=== PATIENT | female | born 1950 | race Caucasian/White ===

== ENCOUNTER → 2018-07-23 | Outpatient (CLI) | payer MEDICARE, BC ==
[~2018-07-23] MED LIST: CLIMARA1 EACH; DIPATR PO; Hydrocodone-Ap1 EA23; PROG100; PROM25 PO; Phenergan25 MG PR; SULI150; Sulindac200 MG PO
[2018-07-24 15:07] LABS: HPV 16 Negative (Negative); HPV 18 Negative (Negative); HPV OTHER HR TYPES Negative (Negative)
== END | disposition home or self-care (01) ==
LOC: LAB SHORT 13:59 → LAB 13:59
PROVIDERS: Nurse Practitioner Women's Health
DX: Z12.4 Encounter for screening for malignant neoplasm of cervix (principal)
CPT/HCPCS: 87624; G0123

== ENCOUNTER → 2022-08-18 | Outpatient (CLI) | payer MEDICARE, BC ==
[~2022-08-18] MED LIST changes: +CONEST1.25 PO; +PROG100 PO
[2022-08-18 19:00] LABS: Adenovirus F 40/41 Not Detected (NOT DETECT); Astrovirus Detected (NOT DETECT); Campylobacter Sp Not Detected (NOT DETECT); Cryptosporidium Not Detected (NOT DETECT); Cyclospora Cayetanensis Not Detected (NOT DETECT); E. Coli O157 Not Detected (NOT DETECT); Entamoeba Histolytica Not Detected (NOT DETECT); Enteroaggregative E. coli-EAEC Not Detected (NOT DETECT); Enteropathogenic E. coli-EPEC Not Detected (NOT DETECT); Enterotoxigenic E. coli-ETEC Not Detected (NOT DETECT); Giardia Lamblia Not Detected (NOT DETECT); Norovirus GI/GII Not Detected (NOT DETECT); Plesiomonas Shigelloides Not Detected (NOT DETECT); Rotavirus A Not Detected (NOT DETECT); Salmonella Sp Not Detected (NOT DETECT); Sapovirus Not Detected (NOT DETECT); Shiga Toxin-prod E. coli-STEC Not Detected (NOT DETECT); Shigella/Enteroin E. coli-EIEC Not Detected (NOT DETECT); Vibrio Cholerae Not Detected (NOT DETECT); Vibrio Sp Not Detected (NOT DETECT); Yersinia Enterocolitica Not Detected (NOT DETECT)
== END | disposition home or self-care (01) ==
LOC: LAB SHORT 15:44 → LAB 15:44
PROVIDERS: Internal Medicine
DX: R19.7 Diarrhea, unspecified (principal)
CPT/HCPCS: 87507

== ENCOUNTER 2023-07-10 09:35 | Day surgery (SDC) | payer MEDICARE, BC ==
[~2023-07-10] VITALS: Ht 172.7 cm; Wt 70.5 kg
[~2023-07-10 09:35] MED LIST changes: +Ciprofloxacin 0.3% Opth Soln 2.5 ML BTL ONE; +Lactated Ringer's 1,000 ML IV ONE
[2023-07-10] MEDS ORDERED: Lactated Ringer's 1,000 ML IV ONE (10:03)
[2023-07-10] MEDS ORDERED: FentaNYL Citrate 50 MCG/ML 2 ML Injection ONE ×2 (10:30→12:41)
[2023-07-10] MEDS ORDERED: propofoL 40 ML IV ONE (10:30)
[2023-07-10] MEDS ORDERED: Lidocaine HCl 4% 5 ML SDA ONE (11:38)
--- NOTE | 2023-07-10 11:57 | NUR ---
07/10/23 1157 Rasheed Torres LIDOCAINE 4% 10 ML MIXED WITH EPI 1:1000 10ML. USED TO SOAK PLEDGETS FOR PACKING ONLY.
[2023-07-10] MEDS ORDERED: propofoL 20 ML IV ONE ×2 (12:02→12:16)
[2023-07-10] MEDS ORDERED: EPINEPhrine HCl 1 MG/ML 1ML Amp XX ONE (12:02)
[2023-07-10] MEDS ORDERED: Dexamethasone Sod Phos 10 MG/ML 1ML VIAL ONE (12:05)
[2023-07-10] MEDS ORDERED: Ondansetron HCl 2 MG / ML 2ML Vial ONE (12:05)
[2023-07-10 13:03] VITALS: BP 123/82
[2023-07-10] MEDS ORDERED: OxyCODONE HCL 5 MG TAB ONE (13:22)
== END 2023-07-10 13:57 | disposition home or self-care (01) ==
LOC: ORSCSDS 09:35
PROVIDERS: Otolaryngology
PROC: 097F8ZZ Dilation of Right Eustachian Tube, Via Natural or Artificial Opening Endoscopic (ICD-10-PCS; principal; 2023-07-10 11:00)
PROC: 097G8ZZ Dilation of Left Eustachian Tube, Via Natural or Artificial Opening Endoscopic (ICD-10-PCS; principal; 2023-07-10 11:00)
DX: H69.93 Unspecified Eustachian tube disorder, bilateral (principal); H71.91 Unspecified cholesteatoma, right ear; H90.A31 Mixed conductive and sensorineural hearing loss, unilateral, right ear with restricted hearing on the contralateral side; K21.9 Gastro-esophageal reflux disease without esophagitis; E78.5 Hyperlipidemia, unspecified; Z79.899 Other long term (current) drug therapy
CPT/HCPCS: A9270; J0171; J1100; J2001; J2405; J2704; J3010; J7120